=== PATIENT | male | born 1945 | race Caucasian/White ===

== ENCOUNTER 2017-07-15 18:06 | Inpatient (IN) | payer MEDICARE ==
[~2017-07-15] VITALS: Ht 193 cm; Wt 102.0 kg
[~2017-07-15 18:06] MED LIST: ACET-2119 PO; DEXL60CA3 PO
[2017-07-15] MEDS ORDERED: normal saline 1000ML IV soln IVB ONE (18:15)
[2017-07-15] MEDS ORDERED: ondansetron/PF 4mg/2ml inj IV ONE (18:15)
[2017-07-15 18:34] LABS: BASOPHILS % (AUTO) 0 % (0-1); EOSINOPHILS # (AUTO) 0.2 X10'3 (0-0.9); EOSINOPHILS % (AUTO) 1.1 % (0-6); HEMATOCRIT 48.9 % (42.0-52.0); HEMOGLOBIN 16.6 g/dl (14.0-17.9); LYMPHOCYTES # (AUTO) 0.3 X10'3 (1.1-4.8); LYMPHOCYTES % (AUTO) 2.4 % (21-51); MEAN CORPUSCULAR HEMOGLOBIN 32.7 PG (27.0-31.0); MEAN CORPUSCULAR VOLUME 96.2 FL (78-98); MEAN PLATELET VOLUME 8.1 FL (7.4-10.4); MONOCYTES # (AUTO) 0.4 X10'3 (0-0.9); MONOCYTES % (AUTO) 3.2 % (2-12); NEUTROPHILS # (AUTO) 12.7 X10'3 (1.8-7.7); NEUTROPHILS % (AUTO) 93.3 % (42-75); PLATELET COUNT 296 X10'3 (140-440); RED BLOOD COUNT 5.09 X10'6 (4.70-6.10); RED CELL DISTRIBUTION WIDTH 14.7 % (11.5-14.5); WHITE BLOOD COUNT 13.6 X10'3 (4.5-11.0)
[2017-07-15] MEDS ORDERED: proCHLORperazine 10 MG/2 ml inj IV ONE (18:40)
[2017-07-15 19:17] LABS: ALANINE AMINOTRANSFERASE 22 U/L (12-78); ALBUMIN 3.8 G/DL (3.4-5.0); ALBUMIN/GLOBULIN RATIO 1.2 (1.1-1.5); ALKALINE PHOSPHATASE 56 IU/L (46-116); ANION GAP 12 (8-16); ASPARTATE AMINO TRANSFERASE 15 U/L (10-37); BILIRUBIN,TOTAL 1.2 MG/DL (0.1-1.0); BLOOD UREA NITROGEN 31 MG/DL (7-18); BUN/CREATININE RATIO 23.5 (5.4-32.0); CHLORIDE 105 MMOL/L (99-107); CREATININE 1.32 MG/DL (0.60-1.10); GLUCOSE 128 MG/DL (70-104); MAGNESIUM 1.4 MG/DL (1.5-2.4); PHOSPHORUS 3.1 MG/DL (2.3-4.5); POTASSIUM 4.1 MMOL/L (3.5-5.1); SODIUM 141 MMOL/L (135-145); TOTAL CARBON DIOXIDE 24.4 MMOL/L (24-32); TOTAL PROTEIN 6.9 G/DL (6.4-8.2); eGFR 54 ML/MIN
[2017-07-15] MEDS ORDERED: magnesium 2GM in 50ml NS 50 ML IV ONE (19:25)
[2017-07-15] MEDS ORDERED: metroNIDAZOLE-Flagyl 500mg/NS 100 ML IV STA (19:25)
[2017-07-15] MEDS ORDERED: ciprofloxacin lact 400MG/200ML 200 ML IV ONE (19:29)
[2017-07-15] MEDS ORDERED: potassium Cl 20 mEq SR tablet PO PRN ×2 (20:20)
[2017-07-15] MEDS ORDERED: morphine 4 MG/ML inj SYRINge IV PRN (20:20)
[2017-07-15] MEDS ORDERED: metoclopramide 5 mg/ml inj IV PRN (20:20)
[2017-07-15] MEDS ORDERED: potassium Cl 40MEQ/NS 500ml 500 ML IV PRN ×2 (20:20)
[2017-07-15] MEDS ORDERED: ondansetron/PF 4mg/2ml inj IV PRN (20:20)
[2017-07-15] MEDS ORDERED: acetaminophen 325mg tablet PO PRN (20:20)
[2017-07-15] MEDS ORDERED: magnesium 2GM in 50ml NS 50 ML IV PRN (21:35)
[2017-07-15] MEDS ORDERED: magnesium Cl slow-release 64mg tablet PO PRN (21:35)
[2017-07-15] MEDS ORDERED: magnesium 4gm in 100ml NS 100 ML IV PRN (21:35)
[2017-07-15] MEDS: normal saline 1000ml 1,000 ML IV SCH (21:41)
[2017-07-16] VITALS: BP 113/68
[2017-07-16 05:49] LABS: BASOPHILS % (AUTO) 0.2 % (0-1); EOSINOPHILS # (AUTO) 0.1 X10'3 (0-0.9); EOSINOPHILS % (AUTO) 0.7 % (0-6); HEMATOCRIT 45.1 % (42.0-52.0); HEMOGLOBIN 15.7 g/dl (14.0-17.9); LYMPHOCYTES # (AUTO) 0.4 X10'3 (1.1-4.8); LYMPHOCYTES % (AUTO) 4.3 % (21-51); MEAN CORPUSCULAR HEMOGLOBIN 33.2 PG (27.0-31.0); MEAN CORPUSCULAR HGB CONC 34.8 % (33.0-36.5); MEAN CORPUSCULAR VOLUME 95.3 FL (78-98); MEAN PLATELET VOLUME 8.9 FL (7.4-10.4); MONOCYTES # (AUTO) 0.8 X10'3 (0-0.9); MONOCYTES % (AUTO) 8.2 % (2-12); NEUTROPHILS # (AUTO) 8.3 X10'3 (1.8-7.7); NEUTROPHILS % (AUTO) 86.6 % (42-75); PLATELET COUNT 249 X10'3 (140-440); RED BLOOD COUNT 4.73 X10'6 (4.70-6.10); RED CELL DISTRIBUTION WIDTH 14.9 % (11.5-14.5); WHITE BLOOD COUNT 9.5 X10'3 (4.5-11.0)
[2017-07-16 06:14] LABS: ALBUMIN 3.2 G/DL (3.4-5.0); ANION GAP 11 (8-16); BLOOD UREA NITROGEN 25 MG/DL (7-18); BUN/CREATININE RATIO 21.6 (5.4-32.0); CALCIUM 8.1 MG/DL (8.5-10.1); CHLORIDE 106 MMOL/L (99-107); CREATININE 1.16 MG/DL (0.60-1.10); GLUCOSE 122 MG/DL (70-104); MAGNESIUM 1.8 MG/DL (1.5-2.4); PHOSPHORUS 3.7 MG/DL (2.3-4.5); POTASSIUM 3.7 MMOL/L (3.5-5.1); SODIUM 139 MMOL/L (135-145); TOTAL CARBON DIOXIDE 22.3 MMOL/L (24-32); eGFR 62 ML/MIN
[2017-07-16 07:12] VITALS: BP 117/71
[2017-07-16] MEDS: normal saline 1000ml 1,000 ML IV SCH (07:35)
[2017-07-16] MEDS ORDERED: acetaminophen 325mg tablet PO PRN (07:55)
[2017-07-16] MEDS ORDERED: metroNIDAZOLE-Flagyl 500mg/NS 100 ML IV SCH ×2 (08:00)
[2017-07-16] MEDS ORDERED: predniSONE 5mg tablet PO SCH (08:00)
[2017-07-16] MEDS ORDERED: K and/or MAG REPLACEMENT MC SCH (08:00)
[2017-07-16] MEDS ORDERED: ciprofloxacin lact 400MG/200ML 200 ML IV SCH (08:00)
[2017-07-16] MEDS ORDERED: tamsulosin 0.4mg capsule PO SCH (08:00)
[2017-07-16] MEDS ORDERED: pantoprazole 40 MG vial IV SCH (08:00)
[2017-07-16] MEDS ORDERED: FLO0.4C PO (09:24)
[2017-07-16] MEDS ORDERED: CHOL2000 PO (09:25)
[2017-07-16 11:37] VITALS: BP 107/61
[2017-07-16] MEDS ORDERED: METR500T4 PO (12:43)
[2017-07-16] MEDS ORDERED: CIPR-230 PO (13:57)
[2017-07-16 14:10] LABS: OCCULT BLOOD STOOL NEGATIVE (Neg)
[2017-07-16 15:06] LABS: C DIFF ANTIGEN NEGATIVE (NEGATIVE); C DIFF SPECIMEN=DIARRHEA? ACCEPTABLE; C DIFFICILE TOXINS A&B NEGATIVE (Neg); CRYPTOSPORIDIUM AG NEGATIVE (Neg); GIARDIA LAMBLIA AG NEGATIVE (Neg)
[2017-07-16] MEDS ORDERED: lactobacillus rhamnosus 10,000 MMU CELLS/CAPSULE PO SCH (20:00)
== END 2017-07-16 13:23 | disposition home or self-care (01) | DRG 683 ==
LOC: ER 18:07 → ED HOLD 20:17 → EDBEDREQ 22:55 → SUR 3N 23:59
PROVIDERS: ADMIT Family Medicine; ATTEND Internal Medicine
DX: N17.9 Acute kidney failure, unspecified (principal); R65.10 Systemic inflammatory response syndrome (SIRS) of non-infectious origin without acute organ dysfunction; M33.20 Polymyositis, organ involvement unspecified; E86.0 Dehydration; E83.42 Hypomagnesemia; K52.9 Noninfective gastroenteritis and colitis, unspecified; N18.9 Chronic kidney disease, unspecified; Z90.81 Acquired absence of spleen; Z79.899 Other long term (current) drug therapy; Z79.01 Long term (current) use of anticoagulants; Z88.1 Allergy status to other antibiotic agents; Z88.8 Allergy status to other drugs, medicaments and biological substances; Z85.46 Personal history of malignant neoplasm of prostate; Z82.49 Family history of ischemic heart disease and other diseases of the circulatory system
CPT/HCPCS: 36415; 74176; 80048; 80053; 82272; 83605; 83735; 84100; 84145; 84484; 85025; 87040; 87045; 87046; 87070; 87324; 87328; 87329; 87336; 87449; 89055; 93005; C9113; J0744; J0780; J3475; J3490; J7030; J7512